=== PATIENT | male | born 1980 | race Hispanic/Latino ===

== ENCOUNTER 2022-11-14 11:04 | Emergency (ER) | payer SELFPAY ==
[2022-11-14] VITALS (8 sets, daily range): BP systolic 110–131; BP diastolic 51–83
[2022-11-14 12:03] LABS: BASO% 0.5 % (0-3); EOS% 1.8 % (0-8); HEMATOCRIT 45.4 % (39.0-50.0); HEMOGLOBIN 15.3 g/dl (14.0-18.0); IMMATURE GRANULOCYTES 0.6 % (0.0-5.0); LYMPH% 28.4 % (15-41); MEAN CELL VOLUME 83.8 fL CALC (80.0-100.0); MEAN CORPUSCULAR HGB 28.2 pG CALC (26.0-32.0); MEAN CORPUSCULAR HGB CONC 33.7 g/dL CAL (32.0-36.0); MONO% 6.2 % (2-13); NEUT# 3.91 thou/uL (1.82-7.42); NEUT% 62.5 % (42-76); RED BLOOD COUNT 5.42 mill/uL (4.70-6.10); RED CELL DISTRI WIDTH 13.2 % (11.5-15.5)
[2022-11-14 12:32] LABS: ALBUMIN 4.6 g/dL (3.2-5.0); ALKALINE PHOSPHATASE 85 u/l (38-126); ANION GAP 12 (6-22 (CALC)); BILIRUBIN, TOTAL 0.5 mg/dL (0.0-1.4); BUN 13 mg/dL (9-20); BUN/CREATININE RATIO 18 (12-20 (CALC)); CARBON DIOXIDE 29 mmol/l (22-30); CHLORIDE 103 mmol/l (95-108); CREATININE 0.7 mg/dL (0.7-1.3); GFR FOR AFR.AMER. > 60 ML/MIN (>=60 (CALC)); GFR OTHER RACES > 60 ML/MIN (>=60 (CALC)); SGOT/AST 48 u/l (17-59); SODIUM 141 mmol/l (137-146); TOTAL PROTEIN 8.5 g/dL (6.3-8.2)
[2022-11-14] MEDS ORDERED: MECLIZINE 2525 MG PO ×2 (14:37→15:02)
== END 2022-11-14 15:10 | disposition home or self-care (01) | DRG 149 ==
LOC: ED 11:04
PROVIDERS: Family Medicine
DX: H81.10 Benign paroxysmal vertigo, unspecified ear (principal)